=== PATIENT | male | born 1980 | race Caucasian/White ===

== ENCOUNTER 2016-10-30 08:54 | Emergency (ER) | payer OTHER ==
[~2016-10-30] VITALS: Ht 172.7 cm; Wt 84.0 kg
[~2016-10-30 08:54] MED LIST: Z.0.NO CURRENT MEDS
[2016-10-30 08:56] VITALS: BP 146/84; PULSE 83; RESP 16; TEMP 97.8; O2SAT 97
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
[2016-10-30] MEDS ORDERED: IBUPROFEN 800 MG TAB PO ONE (10:00)
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
== END 2016-10-30 10:20 | disposition home or self-care (01) ==
LOC: NEPD 08:54
DX: S09.90XA Unspecified injury of head, initial encounter (principal); S43.402A Unspecified sprain of left shoulder joint, initial encounter; S01.01XA Laceration without foreign body of scalp, initial encounter; R11.0 Nausea; M25.572 Pain in left ankle and joints of left foot; F17.200 Nicotine dependence, unspecified, uncomplicated; V13.4XXA Pedal cycle driver injured in collision with car, pick-up truck or van in traffic accident, initial encounter
CPT/HCPCS: 70450; 73030